=== PATIENT | female | born 1945 | race Native Hawaiian/Other Pacific Islander ===

== ENCOUNTER 2023-01-07 11:31 | Inpatient (IN) | payer OTHER, MEDICARE | END 2023-01-17 11:30 | disposition still patient (30) | LOC: PAVB 11:31 | PROVIDERS: ADMIT Family Medicine; ATTEND Family Medicine | DX: I21.4 Non-ST elevation (NSTEMI) myocardial infarction (principal); I48.91 Unspecified atrial fibrillation; M62.81 Muscle weakness (generalized); R26.81 Unsteadiness on feet; Z74.1 Need for assistance with personal care; R41.841 Cognitive communication deficit | CPT/HCPCS: 87081 ==

== ENCOUNTER 2023-02-16 19:14 | Inpatient (IN) | payer OTHER | END 2023-03-19 08:57 | disposition still patient (30) | LOC: PAVB 19:14 | PROVIDERS: ADMIT Family Medicine; ATTEND Family Medicine | DX: I21.4 Non-ST elevation (NSTEMI) myocardial infarction (principal); I48.91 Unspecified atrial fibrillation; M62.81 Muscle weakness (generalized); R26.81 Unsteadiness on feet; Z74.1 Need for assistance with personal care; R41.841 Cognitive communication deficit ==

== ENCOUNTER 2023-03-20 12:03 | Outpatient (CLI) | payer OTHER ==
[2023-03-20 14:41] LABS: PLATELET COUNT 203 K/uL (152-353)
[2023-03-20 14:59] LABS: POTASSIUM 3.9 mmol/L (3.6-5.2)
== END 2023-03-20 19:08 | disposition home or self-care (01) ==
LOC: LAB 12:03
PROVIDERS: ATTEND Family Medicine
DX: I10 Essential (primary) hypertension (principal); I48.91 Unspecified atrial fibrillation; E03.8 Other specified hypothyroidism
CPT/HCPCS: 80048; 80061; 80076; 84443; 85027